=== PATIENT | female | born 1950 | race Caucasian/White ===

== ENCOUNTER 2017-08-29 07:59 | Inpatient (IN) | payer MEDICARE ==
[~2017-08-29] VITALS: Ht 152.4 cm; Wt 55.3 kg
[2017-08-29] MEDS ORDERED: LACTATED RINGERS 1,000 ML IV SCH ×2 (08:52→15:30)
[2017-08-29 08:55] VITALS: BP 119/69
[2017-08-29] MEDS ORDERED: LIDOCAINE 1%, 2ML SQ PRN (09:00)
[2017-08-29] MEDS ORDERED: FUROSEMIDE 20 MG/2 ML ONE (09:04)
[2017-08-29] MEDS ORDERED: BUPIVACAINE/PF 0.25% ONE (09:04)
[2017-08-29] MEDS ORDERED: THROMBIN 5,000 UNIT VIAL TP ONE ×2 (09:05→12:25)
[2017-08-29] MEDS ORDERED: MANNITOL PMX 20% 500 ML ONE (09:05)
[2017-08-29] MEDS ORDERED: EPINEPHRINE 1 MG/ML, 1ML ONE (09:05)
[2017-08-29] MEDS ORDERED: NONE PER PT (09:06)
[2017-08-29] MEDS ORDERED: MIDAZOLAM 1 MG/ML, 2ML ONE (10:24)
[2017-08-29] MEDS ORDERED: ONDANSETRON 2MG/ML, 2ML ONE (10:26)
[2017-08-29] MEDS ORDERED: ROCURONIUM 10 MG/ML,10ML ONE (10:34)
[2017-08-29] MEDS ORDERED: PROPOFOL 10 MG/ML, 20ML ONE (10:34)
[2017-08-29] MEDS ORDERED: SUCCINYLCHOLINE 20 MG/ML, 10ML ONE (10:34)
[2017-08-29] MEDS ORDERED: CEFAZOLIN 1,000 MG ONE (10:34)
[2017-08-29] MEDS ORDERED: FENTANYL PF 250 MCG/5ML ONE (10:34)
[2017-08-29] MEDS ORDERED: DEXAMETHASONE 4 MG/ML, 1ML ONE (10:35)
[2017-08-29] MEDS ORDERED: ACETAMINOPHEN 325 MG TABLET PO PRN (11:00)
[2017-08-29] MEDS ORDERED: OXYcodone 5 MG/5 ML ORAL.SOL UDC PO PRN (11:00)
[2017-08-29] MEDS ORDERED: HYDROmorphone 1 MG/ML, 1ML IV PRN (11:00)
[2017-08-29] MEDS ORDERED: FENTANYL PF 100 MCG/2ML IV PRN (11:00)
[2017-08-29] MEDS ORDERED: ONDANSETRON 2MG/ML, 2ML IVPush PRN (11:00)
[2017-08-29] MEDS ORDERED: MIDAZOLAM 1 MG/ML, 2ML IV PRN (11:00)
[2017-08-29] MEDS ORDERED: LABETALOL 5MG/ML, 20ML IV PRN (11:00)
[2017-08-29] MEDS ORDERED: PROMETHAZINE 25 MG/ML, 1ML IV PRN (11:00)
[2017-08-29] MEDS ORDERED: ALBUTEROL SULFATE 2.5 MG/3 ML NPPB PRN (11:00)
[2017-08-29] MEDS ORDERED: MEPERIDINE/PF 25MG/0.5ML IVPush PRN (11:00)
[2017-08-29] MEDS ORDERED: hydrALAzine 20 MG/ML, 1ML IV PRN (11:00)
[2017-08-29] MEDS ORDERED: FENTANYL PF 100 MCG/2ML ONE ×3 (11:21→13:46)
[2017-08-29] MEDS ORDERED: BUPIVACAINE/PF-EPI 0.25% 1:200K INFIL ONE (11:26)
[2017-08-29] MEDS ORDERED: SUGAMMADEX 200 MG/2 ML IVPush ONE (13:00)
[2017-08-29] MEDS ORDERED: ACETAMINOPHEN 650 MG/20.3 ML UDC ONE (13:46)
[2017-08-29] MEDS ORDERED: OXYcodone 5 MG/5 ML ORAL.SOL UDC ONE (13:46)
[2017-08-29 15:20] VITALS: BP 133/72
[2017-08-29] MEDS ORDERED: TEMAZEPAM 15 MG CAPSULE PO PRN (15:30)
[2017-08-29] MEDS ORDERED: morphine SULFATE 10 MG/ML, 1ML IV PRN (15:30)
[2017-08-29] MEDS ORDERED: ONDANSETRON 2MG/ML, 2ML IV PRN (15:30)
[2017-08-29] MEDS ORDERED: HYDROcodone/APAP 5/325 TABLET PO PRN (15:30)
[2017-08-29] MEDS ORDERED: CEFAZOLIN PMX 1GM/50ML 50 ML IVPB SCH (16:00)
[2017-08-29] MEDS: CEFAZOLIN PMX 1GM/50ML 50 ML IVPB SCH (18:14)
[2017-08-29 19:13] VITALS: BP 129/71
[2017-08-29] MEDS: LACTATED RINGERS 1,000 ML IV SCH (22:38)
[2017-08-29] MEDS: ACETAMINOPHEN 500 MG TABLET PO PRN (22:47)
[2017-08-29] MEDS ORDERED: PROMETHAZINE 25 MG/ML, 1ML IM PRN (23:00)
[2017-08-29 23:53] VITALS: BP 135/79
[2017-08-30 00:49] VITALS: BP 121/70
[2017-08-30] MEDS: CEFAZOLIN PMX 1GM/50ML 50 ML IVPB SCH (02:51)
[2017-08-30 05:45] LABS: ANION GAP 6 mmol/L (5-15); CALCIUM 8.4 mg/dL (8.5-10.1); CHLORIDE 103 mmol/L (98-107)
[2017-08-30 05:46] LABS: CREATININE 1.13 mg/dL (0.55-1.02)
[2017-08-30 07:30] VITALS: BP 110/68
[2017-08-30] MEDS: ACETAMINOPHEN 500 MG TABLET PO PRN (07:30)
[2017-08-30] MEDS: LACTATED RINGERS 1,000 ML IV SCH (07:30)
[2017-08-30 13:30] VITALS: BP 102/59
[2017-08-30] MEDS ORDERED: OXYC-302 PO (14:23)
[2017-08-30] MEDS ORDERED: LACTATED RINGERS 1,000 ML IV SCH ×2 (15:30)
== END 2017-08-30 14:30 | disposition home or self-care (01) | DRG 658 ==
LOC: OUT 07:59 → 4NOR 15:03 → OUT 15:09 → DCLOUNGE 08-30 14:20
PROVIDERS: ADMIT Urology; ATTEND Urology
PROC: 8E0W4CZ Robotic Assisted Procedure of Trunk Region, Percutaneous Endoscopic Approach (ICD-10-PCS; 2017-08-29)
PROC: 0TB14ZZ Excision of Left Kidney, Percutaneous Endoscopic Approach (ICD-10-PCS; principal; 2017-08-29 10:00)
DX: C64.2 Malignant neoplasm of left kidney, except renal pelvis (principal)
CPT/HCPCS: 36415; 80048; 85014; 85018; 86850; 86900; 88305; 88341; 88342; 93005; C1729; J0171; J0690; J1100; J2250; J2405; J2550; J2704; J3010; J3490; C1760; G0461; J0330; J1940; J2270; J7120